=== PATIENT | female | born 1970 | race Caucasian/White ===

== ENCOUNTER 2017-07-29 03:26 | Observation (INO) | payer OTHER ==
[2017-07-29] MEDS ORDERED: Sodium Chloride 0.9% 1,000 ML IV ONE (03:42)
[2017-07-29] MEDS ORDERED: Belladonna-Phenobarbital PO STA (03:42)
[2017-07-29] MEDS ORDERED: Sodium Chloride 0.9% 1,000 ML ONE (03:57)
[2017-07-29] MEDS ORDERED: Belladonna-Phenobarbital ONE (03:57)
--- NOTE | 2017-07-29 04:01 | C.PDOC ---
History Of Present Illness <Jaz Decker - Last Filed: 07/29/17 06:30> <Calixto Glynn N - Last Filed: 07/29/17 07:29> 47 y/o female with c/o of epigastric pain, vomiting x 2 and loose stools after returning from work this morning. Pt reported eating spaghetti from a can which could have caused these symptoms. 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 denies: Fever, Back Pain, Chest Pain <Jaz Decker - Last Filed: 07/29/17 06:30> <Calixto Glynn N - Last Filed: 07/29/17 07:29> Time Seen by Provider: 07/29/17 03:35 Chief Complaint (Nursing): Abdominal Pain Past Medical History - Medical History PMH: GERD Denies: Chronic Kidney Disease Surgical History: No Surg Hx Family History: States: Unknown Family Hx - Social History Hx Alcohol Use: No Hx Substance Use: No <Jaz Decker - Last Filed: 07/29/17 06:30> Vital Signs: Last Vital Signs Temp 98 F 07/29/17 06:47 Pulse 64 07/29/17 06:47 Resp 18 07/29/17 06:47 BP 112/68 07/29/17 06:47 Pulse Ox 99 07/29/17 06:47 Review Of Systems Constitutional: Negative for: Fever Cardiovascular: Negative for: Chest Pain, Light Headedness Respiratory: Negative for: Cough, Shortness of Breath Gastrointestinal: Positive for: Nausea, Vomiting, Abdominal Pain (epigastric). Negative for: Constipation Genitourinary: Negative for: Dysuria, Frequency, Hematuria Neurological: Negative for: Weakness, Numbness <Jaz Decker - Last Filed: 07/29/17 06:30> Constitutional: Negative for: Weakness Eyes: Negative for: Pain, Vision Change ENT: Negative for: Ear Pain, Ear Discharge Cardiovascular: Negative for: Palpitations Gastrointestinal: Negative for: Melena Musculoskeletal: Negative for: Neck Pain, Shoulder Pain Skin: Negative for: Rash Neurological: Negative for: Confusion Psych: Negative for: Anxiety, Psychosis <Calixto Glnyn N - Last Filed: 07/29/17 07:29> Physical Exam - Physical Exam Appears: Well, No Acute Distress Eye(s): bilateral: Normal Inspection, PERRL Oral Mucosa: Moist Neck: Normal Respiratory: Normal Breath Sounds Gastrointestinal/Abdominal: Bowel Sounds (normal), Soft, Tenderness ( epigasrtric and LUQ, no RUQ or RLQ tenderness), No Mass, No Distention, No Guarding, No Rebound Back: Normal Inspection, No CVA Tenderness Neurological/Psych: Oriented x3, Normal Cognition Gait: Steady <Jaz Decker - Last Filed: 07/29/17 06:30> ED Course And Treatment - Laboratory Results Result Diagrams: 07/29/17 04:10 07/29/17 04:10 O2 Sat by Pulse Oximetry: 98 Pulse Ox Interpretation: Normal Progress Note: Labs incl UA, hcg, IVF hydration, pepcid and reglan IV and PO. Pt continued with pain, morphine IV ordered. 45 mns later pt still with epigastric pain - abd and pelvic CT with contrst ordered <Jaz Decker - Last Filed: 07/29/17 06:30> - Laboratory Results Result Diagrams: 07/29/17 04:10 07/29/17 04:10 <Calixto Glynn N - Last Filed: 07/29/17 07:29> Medical Decision Making <Jaz Decker - Last Filed: 07/29/17 06:30> <Calixto Glynn N - Last Filed: 07/29/17 07:29> Medical Decision Making: pt with abdominal pian. persistent. diffuse.labs reviewed. ct a/p ordered. (Calixto Glynn) Disposition Counseled Patient/Family Regarding: Diagnosis, Need For Followup - Disposition Disposition Time: 06:33 <Jaz Decker - Last Filed: 07/29/17 06:30> <Calixto Glynn N - Last Filed: 07/29/17 07:29> - Disposition Condition: STABLE Forms: [facility] (French) - Clinical Impression Clinical Impression: Vomiting, Abdominal pain Physician Patient Turnover Patient Signed Over To: Eveline Mcknight Handoff Comments: Pending CT and disposition <Jaz Decker - Last Filed: 07/29/17 06:30>
[2017-07-29 04:14] LABS: BASO # 0.1 K/uL (0.0-0.2); BASO % 0.5 % (0.0-2.0); EOS # 0.1 K/uL (0.0-0.7); EOS % 0.5 % (0.0-4.0); HEMOGLOBIN 12.9 g/dL (11.0-16.0); LYMPH # 1.7 K/uL (1.0-4.3); LYMPH % 12.3 % (20.0-40.0); MEAN CELL VOLUME 78.4 fL (81.0-99.0); MEAN CORPUSCULAR HEMOGLOBIN 26.1 pg (27.0-31.0); MEAN CORPUSCULAR HGB CONC 33.4 g/dL (33.0-37.0); MEAN PLATELET VOLUME 8.9 fL (7.2-11.7); MONO # 0.7 K/uL (0.0-0.8); NEUT # 11.5 K/uL (1.8-7.0); NEUT % 81.7 % (50.0-75.0); RBC 4.92 Mil/uL (3.80-5.20); RED CELL DISTRIBUTION WIDTH 14.6 % (11.5-14.5)
[2017-07-29 04:25] LABS: CALCIUM 8.7 mg/dl (8.6-10.4); GFR AFRICAN-AMERICAN > 60; GFR NON-AFRICAN AMERICAN > 60; LIPASE 93 U/L (23-300)
[2017-07-29 04:26] LABS: ALB/GLOB RATIO 1.1 (1.0-2.1); ALBUMIN 4.2 g/dL (3.5-5.0); ALT/SGPT 41 U/L (9-52); AST/SGOT 44 U/L (14-36); BLOOD UREA NITROGEN 11 mg/dL (7-17)
[2017-07-29] MEDS ORDERED: Morphine 4 MG/ML VIAL ONE ×2 (05:27→09:39)
[2017-07-29 05:50] LABS: SQUAMOUS EPITHIAL 2 /hpf (0-5); URINE BILIRUBIN NEGATIVE (NEGATIVE); URINE BLOOD NEGATIVE (NEGATIVE); URINE CLARITY Clear (Clear); URINE COLOR Yellow (YELLOW); URINE GLUCOSE (UA) NORMAL (Normal); URINE LEUKOCYTE ESTERASE NEG Leu/uL (Negative); URINE PROTEIN NEGATIVE (NEGATIVE); URINE UROBILINOGEN NORMAL mg/dL (0.2-1.0)
[2017-07-29 05:53] LABS: HCG,QUALITATIVE URINE NEGATIVE (NEGATIVE)
[2017-07-29] MEDS ORDERED: Iohexol 300 100 ML IJ ONE (07:10)
[2017-07-29] MEDS ORDERED: Piperacillin/Tazobact 3.375 gm 100 ML IV STA (09:33)
[2017-07-29] MEDS ORDERED: Piperacillin/Tazobact 3.375 gm 100 ML IVPB ONE (09:40)
--- NOTE | 2017-07-29 10:22 | CT ---
PROCEDURE: CT Abdomen and Pelvis with contrast HISTORY: Abdominal pain and vomiting COMPARISON: None. TECHNIQUE: CT scan of the abdomen and pelvis was performed after administration of intravenous contrast. Oral contrast was not administered. Coronal and sagittal reformatted images were obtained. Contrast dose: 100 mL Omnipaque 300 Radiation dose: Total exam DLP = 1082.36 mGy-cm. This CT exam was performed using one or more of the following dose reduction techniques: Automated exposure control, adjustment of the mA and/or kV according to patient size, and/or use of iterative reconstruction technique. FINDINGS: LOWER THORAX: There is linear atelectasis/ scarring in the lung bases. LIVER: Normal in size with homogeneous enhancement. No gross lesion or ductal dilatation. GALLBLADDER AND BILE DUCTS: No calcified gallstones. PANCREAS: Normal in size with homogeneous enhancement. No gross lesion or ductal dilatation. SPLEEN: Normal in size and appearance. ADRENALS: No discrete nodule. KIDNEYS AND URETERS: Both kidneys are normal in size and there is homogeneous enhancement without hydronephrosis or solid mass. VASCULATURE: No aortic aneurysm. BOWEL: The small bowel loops are normal in caliber. The colon is decompressed. There is scattered colonic diverticulosis without CT evidence for acute diverticulitis. APPENDIX: The appendix is fluid-filled, distended and measures 12 mm with mild wall enhancement and inflammatory changes in the surrounding mesenteric fat. No evidence of perforation or abscess. PERITONEUM: No free fluid. No free air. LYMPH NODES: No enlarged lymph nodes. BLADDER: Unremarkable. REPRODUCTIVE: The uterus is normal in size. BONES: No acute fracture. Within normal limits for the patient's age. OTHER FINDINGS: None. IMPRESSION: Findings are most compatible with acute appendicitis. No evidence for perforation or abscess. Important findings were discussed with AUGUSTO Almendarez in the ER on 07/29/2017 at 9:30 a.m.
[2017-07-29] MEDS ORDERED: Piperacillin/Tazobact 3.375 GM in Sodium Chloride 100 ML IVPB SCH (10:45)
[2017-07-29] MEDS ORDERED: Sodium Chloride 0.9% 1,000 ML IV SCH (10:45)
--- NOTE | 2017-07-29 10:49 | CP.PCM.CON ---
<Sudhakar Walter - Last Filed: 07/29/17 16:16> History of Present Illness - History of Present Illness History of Present Illness: Surgery Consult note. Dr. Pritchard 47yo F with no significant PMHx here for evaluation of Abdominal pain. Pain started this morning at 12:15AM, located in the RLQ, associated with nausea and vomiting x3 episodes (non-bilious, non-bloody), no diarrhea. No association with food intake. Last food intake was 5PM yesterday. Walking and movement exacerbates the abdominal pain. No fevers or chills. No urinary complaints. No sick contacts. No headaches. PMHx: Denies PSHx: Denies Social Hx: Denies Tobacco, denies drugs, occasional ETOH use. Lives at home with family Family Hx: non-contributory NKDA Review of Systems - Review of Systems All systems: reviewed and no additional remarkable complaints except - Constitutional Constitutional: absent: Chills, Fever - Cardiovascular Cardiovascular: absent: Chest Pain, Dyspnea - Respiratory Respiratory: absent: Cough, Dyspnea - Gastrointestinal Gastrointestinal: Abdominal Pain, Nausea, Vomiting. absent: Diarrhea - Genitourinary Genitourinary: absent: Difficulty Urinating, Dysuria Past Patient History - Past Medical History & Family History Past Medical History?: Yes - Past Social History Smoking Status: Never Smoked - CARDIAC Hx Cardiac Disorders: No - PULMONARY Hx Respiratory Disorders: No - NEUROLOGICAL Hx Neurological Disorder: No - HEENT Hx HEENT Problems: No - RENAL Hx Chronic Kidney Disease: No - ENDOCRINE/METABOLIC Hx Endocrine Disorders: No - HEMATOLOGICAL/ONCOLOGICAL Hx Blood Disorders: No - INTEGUMENTARY Hx Dermatological Problems: No - MUSCULOSKELETAL/RHEUMATOLOGICAL Hx Musculoskeletal Disorders: No - GASTROINTESTINAL Hx Gastrointestinal Disorders: No - GENITOURINARY/GYNECOLOGICAL Hx Genitourinary Disorders: No - PSYCHIATRIC Hx Substance Use: No - SURGICAL HISTORY Hx Surgeries: No Meds Allergies/Adverse Reactions: Allergies Allergy/AdvReac Type Severity Reaction Status Date / Time No Known Allergies Allergy Verified 07/29/17 03:40 - Medications Medications: Current Medications Acetaminophen (Tylenol 325mg Tab) 650 mg PO Q6 PRN PRN Reason: Fever >100.4 F Sodium Chloride (Sodium Chloride 0.9%) 1,000 mls @ 125 mls/hr IV .Q8H ROXY Piperacillin Sod/Tazobactam (Sod 3.375 gm/ Sodium Chloride) 100 mls @ 200 mls/ hr IVPB Q6H ROXY PRN Reason: Protocol Metronidazole (Flagyl) 500 mg in 100 mls @ 100 mls/hr IVPB Q8 ROXY PRN Reason: Protocol Ondansetron HCl (Zofran Inj) 4 mg IVP Q6H PRN PRN Reason: Nausea/Vomiting Physical Exam - Constitutional Appears: Well, Non-toxic, No Acute Distress - Head Exam Head Exam: ATRAUMATIC, NORMAL INSPECTION, NORMOCEPHALIC - Eye Exam Eye Exam: EOMI, Normal appearance - ENT Exam ENT Exam: Mucous Membranes Moist - Respiratory Exam Respiratory Exam: Clear to Auscultation Bilateral, NORMAL BREATHING PATTERN. absent: Accessory Muscle Use, Respiratory Distress - Cardiovascular Exam Cardiovascular Exam: RRR. absent: JVD - GI/Abdominal Exam GI & Abdominal Exam: Rebound, Soft, Tenderness (Right lower quadrant tenderness) . absent: Distended, Firm, Guarding, Rigid - Extremities Exam Extremities exam: Positive for: normal inspection. Negative for: calf tenderness - Back Exam Back exam: NORMAL INSPECTION - Neurological Exam Neurological exam: Alert, Oriented x3 - Psychiatric Exam Psychiatric exam: Normal Affect, Normal Mood - Skin Skin Exam: Dry, Intact, Normal Color, Warm Results - Vital Signs Recent Vital Signs: Last Vital Signs Temp 97.9 F 07/29/17 07:36 Pulse 88 07/29/17 10:04 Resp 17 07/29/17 10:04 BP 122/70 07/29/17 10:04 Pulse Ox 99 07/29/17 10:04 - Labs Result Diagrams: 07/29/17 04:10 07/29/17 04:10 Labs: Laboratory Results - last 24 hr 07/29/17 07/29/17 07/29/17 04:10 04:10 05:43 WBC 14.0 H D RBC 4.92 Hgb 12.9 Hct 38.6 MCV 78.4 L MCH 26.1 L MCHC 33.4 RDW 14.6 H Plt Count 229 MPV 8.9 Neut % (Auto) 81.7 H Lymph % (Auto) 12.3 L [place] % (Auto) 5.0 Eos % (Auto) 0.5 Baso % (Auto) 0.5 Neut # (Auto) 11.5 H Lymph # (Auto) 1.7 [place] # (Auto) 0.7 Eos # (Auto) 0.1 Baso # (Auto) 0.1 Sodium 140 Potassium 4.1 Chloride 103 Carbon Dioxide 24 Anion Gap 16 BUN 11 Creatinine 0.6 L Est GFR ( Amer) > 60 Est GFR (Non-Af Amer) > 60 Random Glucose 122 H Calcium 8.7 Total Bilirubin 0.7 AST 44 H ALT 41 Alkaline Phosphatase 62 Total Protein 8.0 Albumin 4.2 Globulin 3.8 Albumin/Globulin Ratio 1.1 Lipase 93 Urine Color Yellow Urine Clarity Clear Urine pH 7.0 Ur Specific [place] 1.016 Urine Protein Negative Urine Glucose (UA) Normal Urine Ketones Trace Urine Blood Negative Urine Nitrate Negative Urine Bilirubin Negative Urine Urobilinogen Normal Ur Leukocyte Esterase Neg Urine WBC (Auto) < 1 Urine RBC (Auto) 1 Ur Squamous Epith Cells 2 Urine HCG, Qual Negative Assessment & Plan - Assessment and Plan (Free Text) Assessment: 47yo F with acute appendicitis Plan: - To OR today - NPO - IVF - IV abx - Pain management Further recs as per Dr. Macho Walter PGY1 surgery pager: [phone] <Kleber Pritchard - Last Filed: 07/30/17 21:21> Results - Vital Signs Recent Vital Signs: Last Vital Signs Temp 98.8 F 07/30/17 08:20 Pulse 76 07/30/17 08:20 Resp 18 07/30/17 08:20 BP 117/77 07/30/17 08:20 Pulse Ox 99 07/30/17 08:20 - Labs Result Diagrams: 07/30/17 06:16 07/30/17 06:16 Labs: Laboratory Results - last 24 hr 07/30/17 07/30/17 06:16 06:16 WBC 6.7 D RBC 4.40 Hgb 11.6 Hct 34.3 MCV 77.9 L MCH 26.2 L MCHC 33.7 RDW 14.9 H Plt Count 178 MPV 9.2 Neut % (Auto) 70.3 Lymph % (Auto) 21.1 [place] % (Auto) 8.0 Eos % (Auto) 0.2 Baso % (Auto) 0.4 Neut # (Auto) 4.7 Lymph # (Auto) 1.4 [place] # (Auto) 0.5 Eos # (Auto) 0.0 Baso # (Auto) 0.0 Sodium 139 Potassium 3.0 L Chloride 104 Carbon Dioxide 24 Anion Gap 14 BUN 6 L Creatinine 0.7 Est GFR ( Amer) > 60 Est GFR (Non-Af Amer) > 60 Random Glucose 110 H Calcium 8.0 L Phosphorus 2.8 Magnesium 1.9 Total Bilirubin 0.5 AST 21 ALT 32 Alkaline Phosphatase 50 Total Protein 6.0 L Albumin 3.0 L D Globulin 3.0 Albumin/Globulin Ratio 1.0 Attending/Attestation - Attestation I have personally seen and examined this patient.: Yes I have fully participated in the care of the patient.: Yes I have reviewed all pertinent clinical information: Yes Notes (Text): Pt was seen and examine at bedside Agree with above note and assessment Pt with RLQ pain and tenderness Labs and radiology reviewed Ass: Acute Appendicitis Plan: Lap Appendectomy possible Open Consent NPO, IVF IV antibiotics Plan d.w pt in detail Risk and benefit explained in detail.
--- NOTE | 2017-07-29 11:24 | RAD ---
HISTORY: pre op COMPARISON: 04/16/2015. FINDINGS: LUNGS: The lungs are clear. PLEURA: No significant pleural effusion identified, no pneumothorax apparent. CARDIOVASCULAR: Normal. OSSEOUS STRUCTURES: No significant abnormalities. VISUALIZED UPPER ABDOMEN: Normal. OTHER FINDINGS: None. IMPRESSION: No active pulmonary disease.
[2017-07-29 11:47] LABS: INR 1.1; PROTHROMBIN TIME 12.4 SECONDS (9.7-12.2)
--- NOTE | 2017-07-29 12:02 | CP.PCM.HP ---
<Nirav Guzman - Last Filed: 07/29/17 12:03> History of Present Illness - History of Present Illness History of Present Illness: PGY-1 H&P for Dr. Aragon CC: abdominal pain This is a 47 year old female with no significant PMHx who presents complaining of severe abdominal pain. Patient states that this started yesterday when she was coming home from work. Patient states that it is diffuse in location and described as a cramping and twisting sensation 10/10 without radiation to the back. Movement exacerbates it, and the IV morphine received in the ED has alleviated her pain greatly. Patient admits associated nausea/vomiting clear in color. There were 3 bouts of vomiting at home yesterday and 5 bouts today. Patient denies any other complaints at this time. PMHx: denies PSHx: denies Allergies: NKDA Social: Denies tobacco, drugs. Occasional alcohol use. 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 Family Hx: Mother with stroke and pancreatic CA. Father with liver disease and bone CA. PMD: Does not have a PMD at the moment since she recently acquired insurance Home meds: Ranitidine 150 mg PO daily Present on Admission - Present on Admission Any Indicators Present on Admission: No Review of Systems - Constitutional Constitutional: absent: Chills, Fever - EENT Eyes: absent: Change in Vision Ears: absent: Decreased Hearing Nose/Mouth/Throat: absent: Nasal Congestion - Cardiovascular Cardiovascular: absent: Chest Pain - Respiratory Respiratory: absent: Dyspnea - Gastrointestinal Gastrointestinal: Abdominal Pain (diffuse), Nausea, Vomiting. absent: Constipation, Diarrhea - Genitourinary Genitourinary: absent: Dysuria - Musculoskeletal Musculoskeletal: absent: Back Pain - Integumentary Integumentary: absent: Rash - Neurological Neurological: Dizziness (occasional when vomiting). absent: Weakness - Psychiatric Psychiatric: absent: Anxiety - Endocrine Endocrine: absent: Palpitations Past Patient History - Past Medical History & Family History Past Medical History?: Yes - Past Social History Smoking Status: Never Smoked - CARDIAC Hx Cardiac Disorders: No - PULMONARY Hx Respiratory Disorders: No - NEUROLOGICAL Hx Neurological Disorder: No - HEENT Hx HEENT Problems: No - RENAL Hx Chronic Kidney Disease: No - ENDOCRINE/METABOLIC Hx Endocrine Disorders: No - HEMATOLOGICAL/ONCOLOGICAL Hx Blood Disorders: No - INTEGUMENTARY Hx Dermatological Problems: No - MUSCULOSKELETAL/RHEUMATOLOGICAL Hx Musculoskeletal Disorders: No - GASTROINTESTINAL Hx Gastrointestinal Disorders: No - GENITOURINARY/GYNECOLOGICAL Hx Genitourinary Disorders: No - PSYCHIATRIC Hx Substance Use: No - SURGICAL HISTORY Hx Surgeries: No Meds Allergies/Adverse Reactions: Allergies Allergy/AdvReac Type Severity Reaction Status Date / Time No Known Allergies Allergy Verified 07/29/17 03:40 Physical Exam - Constitutional Appears: No Acute Distress - Head Exam Head Exam: ATRAUMATIC, NORMOCEPHALIC - Eye Exam Eye Exam: EOMI, PERRL - ENT Exam ENT Exam: Mucous Membranes Moist - Respiratory Exam Respiratory Exam: Clear to Auscultation Bilateral, NORMAL BREATHING PATTERN. absent: Rales, Rhonchi, Wheezes - Cardiovascular Exam Cardiovascular Exam: REGULAR RHYTHM, +S1, +S2 - GI/Abdominal Exam GI & Abdominal Exam: Normal Bowel Sounds, Soft, Tenderness (mild diffuse tenderness markedly reduced as she was seen after morphine administration. positive Rovsing's sign). absent: Distended - Extremities Exam Extremities exam: Positive for: normal capillary refill, pedal pulses present. Negative for: pedal edema, tenderness - Neurological Exam Neurological exam: Alert, CN II-XII Intact, Oriented x3 - Psychiatric Exam Psychiatric exam: Normal Affect, Normal Mood - Skin Skin Exam: Dry, Warm Results - Vital Signs Recent Vital Signs: Last Vital Signs Temp 98.2 F 07/29/17 11:55 Pulse 78 07/29/17 11:55 Resp 18 07/29/17 11:55 BP 121/75 07/29/17 11:55 Pulse Ox 96 07/29/17 11:55 - Labs Result Diagrams: 07/29/17 04:10 07/29/17 04:10 Labs: Laboratory Results - last 24 hr 07/29/17 07/29/17 07/29/17 04:10 04:10 05:43 WBC 14.0 H D RBC 4.92 Hgb 12.9 Hct 38.6 MCV 78.4 L MCH 26.1 L MCHC 33.4 RDW 14.6 H Plt Count 229 MPV 8.9 Neut % (Auto) 81.7 H Lymph % (Auto) 12.3 L [place] % (Auto) 5.0 Eos % (Auto) 0.5 Baso % (Auto) 0.5 Neut # (Auto) 11.5 H Lymph # (Auto) 1.7 [place] # (Auto) 0.7 Eos # (Auto) 0.1 Baso # (Auto) 0.1 PT INR APTT Sodium 140 Potassium 4.1 Chloride 103 Carbon Dioxide 24 Anion Gap 16 BUN 11 Creatinine 0.6 L Est GFR ( Amer) > 60 Est GFR (Non-Af Amer) > 60 Random Glucose 122 H Calcium 8.7 Total Bilirubin 0.7 AST 44 H ALT 41 Alkaline Phosphatase 62 Total Protein 8.0 Albumin 4.2 Globulin 3.8 Albumin/Globulin Ratio 1.1 Lipase 93 Urine Color Yellow Urine Clarity Clear Urine pH 7.0 Ur Specific [place] 1.016 Urine Protein Negative Urine Glucose (UA) Normal Urine Ketones Trace Urine Blood Negative Urine Nitrate Negative Urine Bilirubin Negative Urine Urobilinogen Normal Ur Leukocyte Esterase Neg Urine WBC (Auto) < 1 Urine RBC (Auto) 1 Ur Squamous Epith Cells 2 Urine HCG, Qual Negative 07/29/17 11:20 WBC RBC Hgb Hct MCV MCH MCHC RDW Plt Count MPV Neut % (Auto) Lymph % (Auto) [place] % (Auto) Eos % (Auto) Baso % (Auto) Neut # (Auto) Lymph # (Auto) [place] # (Auto) Eos # (Auto) Baso # (Auto) PT 12.4 H INR 1.1 APTT 27 Sodium Potassium Chloride Carbon Dioxide Anion Gap BUN Creatinine Est GFR ( Amer) Est GFR (Non-Af Amer) Random Glucose Calcium Total Bilirubin AST ALT Alkaline Phosphatase Total Protein Albumin Globulin Albumin/Globulin Ratio Lipase Urine Color Urine Clarity Urine pH Ur Specific [place] Urine Protein Urine Glucose (UA) Urine Ketones Urine Blood Urine Nitrate Urine Bilirubin Urine Urobilinogen Ur Leukocyte Esterase Urine WBC (Auto) Urine RBC (Auto) Ur Squamous Epith Cells Urine HCG, Qual Assessment & Plan - Assessment and Plan (Free Text) Plan: Acute Appendicitis As evidenced by CT imaging Zosyn 3.375 gm Q6 Flagyl 500 mg Q8 Surgery consult, Dr. Pritchard, help appreciated Surgery planned for 13:00 today Morphine 2 mg Q3 IV prn NS 125cc/hr follow up surgery recommendations Pre-op CXR no active disease Pre-op EKG NSR with no ST segment changes Prophylaxis Will follow up surgery recommendations for when to start post-op Pepcid 20 mg IV daily Disposition: Patient is medically optimized for surgery today. Discussed with Dr. Margo Guzman PGY-1 <Daniel Aragon H - Last Filed: 07/29/17 12:24> Results - Vital Signs Recent Vital Signs: Last Vital Signs Temp 98.2 F 07/29/17 11:55 Pulse 78 07/29/17 11:55 Resp 18 07/29/17 11:55 BP 121/75 07/29/17 11:55 Pulse Ox 96 07/29/17 11:55 - Labs Result Diagrams: 07/29/17 04:10 07/29/17 04:10 Labs: Laboratory Results - last 24 hr 07/29/17 07/29/17 07/29/17 04:10 04:10 05:43 WBC 14.0 H D RBC 4.92 Hgb 12.9 Hct 38.6 MCV 78.4 L MCH 26.1 L MCHC 33.4 RDW 14.6 H Plt Count 229 MPV 8.9 Neut % (Auto) 81.7 H Lymph % (Auto) 12.3 L [place] % (Auto) 5.0 Eos % (Auto) 0.5 Baso % (Auto) 0.5 Neut # (Auto) 11.5 H Lymph # (Auto) 1.7 [place] # (Auto) 0.7 Eos # (Auto) 0.1 Baso # (Auto) 0.1 PT INR APTT Sodium 140 Potassium 4.1 Chloride 103 Carbon Dioxide 24 Anion Gap 16 BUN 11 Creatinine 0.6 L Est GFR ( Amer) > 60 Est GFR (Non-Af Amer) > 60 Random Glucose 122 H Calcium 8.7 Total Bilirubin 0.7 AST 44 H ALT 41 Alkaline Phosphatase 62 Total Protein 8.0 Albumin 4.2 Globulin 3.8 Albumin/Globulin Ratio 1.1 Lipase 93 Urine Color Yellow Urine Clarity Clear Urine pH 7.0 Ur Specific [place] 1.016 Urine Protein Negative Urine Glucose (UA) Normal Urine Ketones Trace Urine Blood Negative Urine Nitrate Negative Urine Bilirubin Negative Urine Urobilinogen Normal Ur Leukocyte Esterase Neg Urine WBC (Auto) < 1 Urine RBC (Auto) 1 Ur Squamous Epith Cells 2 Urine HCG, Qual Negative 07/29/17 11:20 WBC RBC Hgb Hct MCV MCH MCHC RDW Plt Count MPV Neut % (Auto) Lymph % (Auto) [place] % (Auto) Eos % (Auto) Baso % (Auto) Neut # (Auto) Lymph # (Auto) [place] # (Auto) Eos # (Auto) Baso # (Auto) PT 12.4 H INR 1.1 APTT 27 Sodium Potassium Chloride Carbon Dioxide Anion Gap BUN Creatinine Est GFR ( Amer) Est GFR (Non-Af Amer) Random Glucose Calcium Total Bilirubin AST ALT Alkaline Phosphatase Total Protein Albumin Globulin Albumin/Globulin Ratio Lipase Urine Color Urine Clarity Urine pH Ur Specific [place] Urine Protein Urine Glucose (UA) Urine Ketones Urine Blood Urine Nitrate Urine Bilirubin Urine Urobilinogen Ur Leukocyte Esterase Urine WBC (Auto) Urine RBC (Auto) Ur Squamous Epith Cells Urine HCG, Qual Attending/Attestation - Attestation I have personally seen and examined this patient.: Yes I have fully participated in the care of the patient.: Yes I have reviewed all pertinent clinical information: Yes Notes (Text): 07/29/17 12:21 Medical attending: Patient was seen and examined by me with the biomedical engineering director in ER bed 13. Family member present as well in the room, patient was ok with this. Agree with the above note by the resident By the time I saw her she had recived morphine IV and said this had helped her with the abdominal pain signifigantly. Reviewed the CT, concern for appendicitis. She has a WBC of 14.5. No other signifigant medical history noted. She is already on IVF, IV Zosyn IV Flagyl, and NPO. She had a CXRAY and EKG, both of these were stable. I have been informed that they are planning for OR sometime today. thank you Daniel Aragon
[2017-07-29] MEDS: Lidocaine/Epinephrine 1% 1:100000 10 ML IJ ONE ×2 (13:13→13:50)
[2017-07-29] MEDS: Bupivacaine 0.25% Inj(30mL) ONE ×2 (13:13→13:50)
[2017-07-29] MEDS ORDERED: Propofol 10 mg/ml Inj (20 ML) ONE ×2 (13:20→14:24)
[2017-07-29] MEDS: metroNIDAZOLE IV 500 mg/100 ml 500 MG/100 ML BAG IVPB SCH ×2 (13:30→20:59)
[2017-07-29] MEDS ORDERED: Succinylcholine Chloride 20 mg/ml Syr (5 ml) IV ONE (13:33)
[2017-07-29] MEDS ORDERED: Rocuronium 10 mg/ml (5 ml) ONE (13:34)
[2017-07-29] MEDS: Piperacillin/Tazobact 3.375 GM in Sodium Chloride 100 ML IVPB SCH ×2 (13:45→20:59)
[2017-07-29] MEDS ORDERED: Neostigmine Methylsulfate 3mg/3ml Syringe IV ONE (14:29)
[2017-07-29] MEDS ORDERED: HYDROmorphone 0.5 mg/0.5 ml ISec IVP PRN (14:39)
[2017-07-29] MEDS ORDERED: Lactated Ringer's 1,000 ML IV SCH (14:45)
--- NOTE | 2017-07-29 14:49 | PCM.SURG1 ---
Surgeon's Initial Post Op Note - Surgeon's Notes Surgeon: Dr. Pritchard Adult Parole Officer: Saba PGY1 Type of Anesthesia: General Endo Anesthesia Administered By: Dr. Gordon Pre-Operative Diagnosis: Acute Appendicitis Operative Findings: Supparative Appendicitis. See operative report Post-Operative Diagnosis: same Operation Performed: Laparascopic Appendectomy Specimen/Specimens Removed: Appendix Estimated Blood Loss: EBL {In ML}: 10 Blood Products Given: N/A Drains Used: No Drains Post-Op Condition: Good Date of Surgery/Procedure: 07/29/17 Time of Surgery/Procedure: 14:49
[2017-07-29] MEDS: Oxycodone/Acetaminophen 5/325 mg Tab PO PRN (20:05)
--- NOTE | 2017-07-29 23:57 | OP ---
PROCEDURE DATE: 07/29/2017 PREOPERATIVE DIAGNOSES: Acute appendicitis and leukocytosis. POSTOPERATIVE DIAGNOSES: 1. Acute suppurative appendicitis. 2. Pelvic and periappendicular small abscess. PROCEDURE DONE: 1. Laparoscopic appendectomy. 2. Laparoscopic drainage of small pelvic and periappendicular abscess. SURGEON: The procedure was done by Dr. Macho lucas. GLUING PRESSMAN: Sudhakar Walter, PGY-2 resident. TYPE OF ANESTHESIA: General endotracheal tube anesthesia. ESTIMATED BLOOD LOSS: Around 10 mL. DRAIN: None. PATHOLOGY: Appendix was sent for the pathology. COMPLICATIONS: None. INTRAOPERATIVE FINDINGS: The patient had acute suppurative appendicitis with purulent small pelvic collection and periappendicular collection. DESCRIPTION OF PROCEDURE: On intraoperative steps, this 47-year-old female who was diagnosed with acute appendicitis with leukocytosis and the patient was consented for laparoscopic appendectomy, possible open, brought to the OR, placed supine on the operating table. After induction of the anesthesia, abdomen was prepped and draped in the usual sterile fashion. Supraumbilical transverse incision was made after incising skin, subcutaneous tissue and fascia. The Armando port was placed, pneumo was created. The 5-mm port was placed in the suprapubic region. A 12-mm port was placed in a left lower quadrant. The grasper and dissector was introduced and periappendicular collection was drained and the patient also had a pelvic collection that was also drained; and now the mesoappendix was resected with the harmonic scalpel. The base of the appendix was resected with the OSEAS and appendix was taken in an EndoCatch bag, taken out through the umbilical port site, and sent off the table for pathology. The suction irrigation of the periappendicular area and the pelvic area was done and all the collection of fluid was suctioned out. Hemostasis was achieved. All the port was taken out under vision. Pneumo was deflated. The umbilical port site was closed in 2 layers, fascia with 0-Vicryl interrupted sutures, skin with the 4-0 Monocryl and dry sterile dressing was applied. The patient tolerated the procedure well. Count of the instrument and gauze was correct. There was no apparent complication. Kleber Pritchard MD
[2017-07-30] MEDS: Piperacillin/Tazobact 3.375 GM in Sodium Chloride 100 ML IVPB SCH ×2 (03:53→09:49)
[2017-07-30] MEDS: metroNIDAZOLE IV 500 mg/100 ml 500 MG/100 ML BAG IVPB SCH (05:41)
[2017-07-30] MEDS: Oxycodone/Acetaminophen 5/325 mg Tab PO PRN (05:48)
[2017-07-30 06:24] LABS: BASO % 0.4 % (0.0-2.0); EOS % 0.2 % (0.0-4.0); HEMOGLOBIN 11.6 g/dL (11.0-16.0); LYMPH # 1.4 K/uL (1.0-4.3); LYMPH % 21.1 % (20.0-40.0); MEAN CELL VOLUME 77.9 fL (81.0-99.0); MEAN CORPUSCULAR HEMOGLOBIN 26.2 pg (27.0-31.0); MEAN CORPUSCULAR HGB CONC 33.7 g/dL (33.0-37.0); MEAN PLATELET VOLUME 9.2 fL (7.2-11.7); MONO # 0.5 K/uL (0.0-0.8); NEUT # 4.7 K/uL (1.8-7.0); NEUT % 70.3 % (50.0-75.0); RBC 4.4 Mil/uL (3.80-5.20); RED CELL DISTRIBUTION WIDTH 14.9 % (11.5-14.5); WHITE BLOOD COUNT 6.7 K/uL (4.8-10.8)
[2017-07-30 06:42] LABS: ALT/SGPT 32 U/L (9-52); AST/SGOT 21 U/L (14-36); BLOOD UREA NITROGEN 6 mg/dL (7-17); GFR AFRICAN-AMERICAN > 60; GFR NON-AFRICAN AMERICAN > 60
[2017-07-30] MEDS ORDERED: Potassium Chloride 20 mEq ER Tab PO STA (07:27)
--- NOTE | 2017-07-30 07:30 | CP.PCM.PN ---
<Stanley Garcia - Last Filed: 07/30/17 07:28> Subjective - Date & Time of Evaluation Date of Evaluation: 07/30/17 Time of Evaluation: 07:28 - Subjective Subjective: General Surgery: Dr Pritchard PT S&E. NAEO. POD#1 s/p lap appy. Pt reports she is feeling much better. Tolerated diet. PAssing flatus. Denies f/c, sob, cp, n/v. Post-op instructions given at bedside. Objective - Vital Signs/Intake and Output Vital Signs (last 24 hours): Temp Pulse Resp BP Pulse Ox 98.6 F 81 20 108/69 96 07/30/17 04:20 07/30/17 04:20 07/30/17 04:20 07/30/17 04:20 07/30/17 04:20 Intake and Output: 07/30/17 07/30/17 06:59 18:59 Intake Total 1720 Balance 1720 - Medications Medications: Current Medications Acetaminophen (Tylenol 325mg Tab) 650 mg PO Q6 PRN PRN Reason: Fever >100.4 F Famotidine (Pepcid) 20 mg IVP DAILY ROXY Piperacillin Sod/Tazobactam (Sod 3.375 gm/ Sodium Chloride) 100 mls @ 200 mls/ hr IVPB Q6H ROXY PRN Reason: Protocol Last Admin: 07/30/17 03:53 Dose: 200 mls/hr Metronidazole (Flagyl) 500 mg in 100 mls @ 100 mls/hr IVPB Q8 ROXY PRN Reason: Protocol Last Admin: 07/30/17 05:41 Dose: 100 mls/hr Oxycodone/Acetaminophen (Percocet 5/325 Mg Tab) 1 tab PO Q6H PRN PRN Reason: Pain, moderate (4-7) Stop: 08/01/17 15:31 Last Admin: 07/30/17 05:48 Dose: 1 tab Pneumococcal Polyvalent Vaccine (Pneumovax 23 Vaccine) 0.5 ml IM .ONCE ONE Stop: 08/01/17 10:01 - Labs Labs: 07/30/17 06:16 07/30/17 06:16 PT 12.4 SECONDS (9.7-12.2) H 07/29/17 11:20 INR 1.1 03/25/18 11:20 APTT 27 SECONDS (21-34) 07/29/17 11:20 - Constitutional Appears: Non-toxic, No Acute Distress - Head Exam Head Exam: NORMAL INSPECTION - ENT Exam ENT Exam: Mucous Membranes Moist - Respiratory Exam Respiratory Exam: absent: Accessory Muscle Use, Respiratory Distress - Cardiovascular Exam Cardiovascular Exam: REGULAR RHYTHM. absent: Tachycardia - GI/Abdominal Exam GI & Abdominal Exam: Soft, Tenderness (post-op). absent: Distended, Firm, Guarding, Rigid Additional comments: incisions c/d/i - Extremities Exam Extremities Exam: absent: Pedal Edema - Neurological Exam Neurological Exam: Alert, Awake, Oriented x3 - Psychiatric Exam Psychiatric exam: Normal Affect, Normal Mood - Skin Skin Exam: Normal Color, Warm Assessment and Plan - Assessment and Plan (Free Text) Assessment: 47F POD#1 s/p lap appy Plan: clear for d/c f/u in office in 1 week post-op instructions given at bedside d/w Dr Macho Garcia, PGY3 <Kleber Pritchard B - Last Filed: 07/30/17 21:33> Objective - Vital Signs/Intake and Output Vital Signs (last 24 hours): Temp Pulse Resp BP Pulse Ox 98.8 F 76 18 117/77 99 07/30/17 08:20 07/30/17 08:20 07/30/17 08:20 07/30/17 08:20 07/30/17 08:20 - Labs Labs: 07/30/17 06:16 07/30/17 06:16 PT 12.4 SECONDS (9.7-12.2) H 07/29/17 11:20 INR 1.1 07/29/17 11:20 APTT 27 SECONDS (21-34) 07/29/17 11:20 Attending/Attestation - Attestation I have personally seen and examined this patient.: Yes I have fully participated in the care of the patient.: Yes I have reviewed all pertinent clinical information, including history, physical exam and plan: Yes Notes (Text): Pt was seen and examine at bedside Agree with above note and assessment Pt is improving clinically DC home PO antibiotics Plan d.w pt in detail Risk and benefit explained in detail.
[2017-07-30 08:25] VITALS: PULSE 76; RESP 18; TEMP 98.8; O2SAT 99
[2017-07-30 08:27] VITALS: BP 117/77
[2017-07-30] MEDS ORDERED: Potassium Chloride 20 mEq ER Tab PO ONE (09:20)
--- NOTE | 2017-07-30 11:16 | CP.PCM.DIS ---
<Nirav Guzman S - Last Filed: 07/30/17 13:27> Provider - Provider Date of Admission: 07/29/17 10:24 Attending physician: Christine Carbajal DO Consults: General Surgery: Dr. Pritchard Time Spent in preparation of Discharge (in minutes): 35 Diagnosis - Discharge Diagnosis (1) Acute appendicitis Status: Acute Priority: High Hospital Course - Lab Results Lab Results: Most Recent Lab Values WBC 6.7 K/uL (4.8-10.8) D 07/30/17 06:16 RBC 4.40 Mil/uL (3.80-5.20) 07/30/17 06:16 Hgb 11.6 g/dL (11.0-16.0) 07/30/17 06:16 Hct 34.3 % (34.0-47.0) 07/30/17 06:16 MCV 77.9 fL (81.0-99.0) L 07/30/17 06:16 MCH 26.2 pg (27.0-31.0) L 07/30/17 06:16 MCHC 33.7 g/dL (33.0-37.0) 07/30/17 06:16 RDW 14.9 % (11.5-14.5) H 07/30/17 06:16 Plt Count 178 K/uL (130-400) 07/30/17 06:16 MPV 9.2 fL (7.2-11.7) 07/30/17 06:16 Neut % (Auto) 70.3 % (50.0-75.0) 07/30/17 06:16 Lymph % (Auto) 21.1 % (20.0-40.0) 07/30/17 06:16 [place] % (Auto) 8.0 % (0.0-10.0) 07/30/17 06:16 Eos % (Auto) 0.2 % (0.0-4.0) 07/30/17 06:16 Baso % (Auto) 0.4 % (0.0-2.0) 07/30/17 06:16 Neut # (Auto) 4.7 K/uL (1.8-7.0) 07/30/17 06:16 Lymph # (Auto) 1.4 K/uL (1.0-4.3) 07/30/17 06:16 [place] # (Auto) 0.5 K/uL (0.0-0.8) 07/30/17 06:16 Eos # (Auto) 0.0 K/uL (0.0-0.7) 07/30/17 06:16 Baso # (Auto) 0.0 K/uL (0.0-0.2) 07/30/17 06:16 PT 12.4 SECONDS (9.7-12.2) H 07/29/17 11:20 INR 1.1 07/29/17 11:20 APTT 27 SECONDS (21-34) 07/29/17 11:20 Sodium 139 mmol/L (132-148) 07/30/17 06:16 Potassium 3.0 mmol/L (3.6-5.2) L 07/30/17 06:16 Chloride 104 mmol/L (98-107) 07/30/17 06:16 Carbon Dioxide 24 mmol/L (22-30) 07/30/17 06:16 Anion Gap 14 (10-20) 07/30/17 06:16 BUN 6 mg/dL (7-17) L 07/30/17 06:16 Creatinine 0.7 mg/dL (0.7-1.2) 07/30/17 06:16 Est GFR ( Amer) > 60 07/30/17 06:16 Est GFR (Non-Af Amer) > 60 07/30/17 06:16 Random Glucose 110 mg/dL (65-105) H 07/30/17 06:16 Calcium 8.0 mg/dl (8.6-10.4) L 07/30/17 06:16 Phosphorus 2.8 mg/dL (2.5-4.5) 07/30/17 06:16 Magnesium 1.9 mg/dL (1.6-2.3) 07/30/17 06:16 Total Bilirubin 0.5 mg/dL (0.2-1.3) 07/30/17 06:16 AST 21 U/L (14-36) 07/30/17 06:16 ALT 32 U/L (9-52) 07/30/17 06:16 Alkaline Phosphatase 50 U/L (38-126) 07/30/17 06:16 Total Protein 6.0 g/dL (6.3-8.3) L 07/30/17 06:16 Albumin 3.0 g/dL (3.5-5.0) L D 07/30/17 06:16 Globulin 3.0 gm/dL (2.2-3.9) 07/30/17 06:16 Albumin/Globulin Ratio 1.0 (1.0-2.1) 07/30/17 06:16 Lipase 93 U/L (23-300) 07/29/17 04:10 Urine Color Yellow (YELLOW) 07/29/17 05:43 Urine Clarity Clear (Clear) 07/29/17 05:43 Urine pH 7.0 (5.0-8.0) 07/29/17 05:43 Ur Specific [place] 1.016 (1.003-1.030) 07/29/17 05:43 Urine Protein Negative mg/dL (NEGATIVE) 07/29/17 05:43 Urine Glucose (UA) Normal mg/dL (Normal) 07/29/17 05:43 Urine Ketones Trace mg/dL (NEGATIVE) 07/29/17 05:43 Urine Blood Negative (NEGATIVE) 07/29/17 05:43 Urine Nitrate Negative (NEGATIVE) 07/29/17 05:43 Urine Bilirubin Negative (NEGATIVE) 07/29/17 05:43 Urine Urobilinogen Normal mg/dL (0.2-1.0) 07/29/17 05:43 Ur Leukocyte Esterase Neg [place]ras/uL (Negative) 07/29/17 05:43 Urine WBC (Auto) < 1 /hpf (0-5) 07/29/17 05:43 Urine RBC (Auto) 1 /hpf (0-3) 07/29/17 05:43 Ur Squamous Epith Cells 2 /hpf (0-5) 07/29/17 05:43 Urine HCG, Qual Negative (NEGATIVE) 07/29/17 05:43 - Hospital Course Hospital Course: Initial Note: "This is a 47 year old female with no significant PMHx who presents complaining of severe abdominal pain. Patient states that this started yesterday when she was coming home from work. Patient states that it is diffuse in location and described as a cramping and twisting sensation 10/10 without radiation to the back. Movement exacerbates it, and the IV morphine received in the ED has alleviated her pain greatly. Patient admits associated nausea/vomiting clear in color. There were 3 bouts of vomiting at home yesterday and 5 bouts today. Patient denies any other complaints at this time." Hospital Course: Patient admitted for acute appendicitis due to CT evidence of inflammation and edema of the appendix. Patient underwent successful laparoscopic appendectomy on 07/29/17. Patient is stable, tolerating regular food, and passing flatus. She was cleared for discharge from the surgical perspective with instructions for office follow up in one week's time. Instructions were discussed with the patient by the surgical team at bedside. Patient does not have a PMD currently. She recently acquired insurance and is looking for one. In case she was unable to find one, the information for the [facility] at [place] was provided in her discharge paperwork. This is a summary of the hospital course. For more information, refer to the medical records. Discharge Exam - Head Exam Head Exam: NORMAL INSPECTION - Additional Findings Additional findings: - Constitutional Appears: No Acute Distress - Head Exam Head Exam: ATRAUMATIC, NORMOCEPHALIC - Eye Exam Eye Exam: EOMI, PERRL - ENT Exam ENT Exam: Mucous Membranes Moist - Respiratory Exam Respiratory Exam: Clear to Auscultation Bilateral, NORMAL BREATHING PATTERN. absent: Rales, Rhonchi, Wheezes - Cardiovascular Exam Cardiovascular Exam: REGULAR RHYTHM, +S1, +S2 - GI/Abdominal Exam GI & Abdominal Exam: Normal Bowel Sounds, Soft, Tenderness (Post-operative tenderness). absent: Distended Additional Comments: Dressing clean, dry, intact - Extremities Exam Extremities exam: Positive for: normal capillary refill, pedal pulses present. Negative for: pedal edema, tenderness - Neurological Exam Neurological exam: Alert, CN II-XII Intact, Oriented x3 - Psychiatric Exam Psychiatric exam: Normal Affect, Normal Mood - Skin Skin Exam: Dry, Warm Discharge Plan - Follow Up Plan Condition: STABLE Disposition: HOME/ ROUTINE Instructions: Appendicitis, Adult (DC), Appendectomy, Laparoscopic Surgery (DC) , Managing Pain After Surgery Additional Instructions: Please continue using the incentive spirometer. Take 10 puffs every hour. Please follow up with Dr. Pritchard in the office in 1 week. For pain, you can take over the counter Tylenol if needed. Avoid Motrin, Advil, Alieve unless the pain is severe. If you take one of those medications, please be sure to take it with food. If you cannot find a primary care physician, we have a clinic in [place] called [facility]. Their info is as follows: [phone] [place] [address]. [place] [phone] If there are any new or worsening symptoms, please go to the nearest emergency room. Referrals: Kleber Pritchard MD [Staff Provider] - <Christine Carbajal V - Last Filed: 07/30/17 21:20> Provider - Provider Date of Admission: 07/29/17 10:24 Attending physician: Christine Carbajal, DO Hospital Course - Lab Results Lab Results: Most Recent Lab Values WBC 6.7 K/uL (4.8-10.8) D 07/30/17 06:16 RBC 4.40 Mil/uL (3.80-5.20) 07/30/17 06:16 Hgb 11.6 g/dL (11.0-16.0) 07/30/17 06:16 Hct 34.3 % (34.0-47.0) 07/30/17 06:16 MCV 77.9 fL (81.0-99.0) L 07/30/17 06:16 MCH 26.2 pg (27.0-31.0) L 07/30/17 06:16 MCHC 33.7 g/dL (33.0-37.0) 07/30/17 06:16 RDW 14.9 % (11.5-14.5) H 07/30/17 06:16 Plt Count 178 K/uL (130-400) 07/30/17 06:16 MPV 9.2 fL (7.2-11.7) 07/30/17 06:16 Neut % (Auto) 70.3 % (50.0-75.0) 07/30/17 06:16 Lymph % (Auto) 21.1 % (20.0-40.0) 07/30/17 06:16 [place] % (Auto) 8.0 % (0.0-10.0) 07/30/17 06:16 Eos % (Auto) 0.2 % (0.0-4.0) 07/30/17 06:16 Baso % (Auto) 0.4 % (0.0-2.0) 07/30/17 06:16 Neut # (Auto) 4.7 K/uL (1.8-7.0) 07/30/17 06:16 Lymph # (Auto) 1.4 K/uL (1.0-4.3) 07/30/17 06:16 [place] # (Auto) 0.5 K/uL (0.0-0.8) 07/30/17 06:16 Eos # (Auto) 0.0 K/uL (0.0-0.7) 07/30/17 06:16 Baso # (Auto) 0.0 K/uL (0.0-0.2) 07/30/17 06:16 PT 12.4 SECONDS (9.7-12.2) H 07/29/17 11:20 INR 1.1 07/29/17 11:20 APTT 27 SECONDS (21-34) 07/29/17 11:20 Sodium 139 mmol/L (132-148) 07/30/17 06:16 Potassium 3.0 mmol/L (3.6-5.2) L 07/30/17 06:16 Chloride 104 mmol/L (98-107) 07/30/17 06:16 Carbon Dioxide 24 mmol/L (22-30) 07/30/17 06:16 Anion Gap 14 (10-20) 07/30/17 06:16 BUN 6 mg/dL (7-17) L 07/30/17 06:16 Creatinine 0.7 mg/dL (0.7-1.2) 07/30/17 06:16 Est GFR ( Amer) > 60 07/30/17 06:16 Est GFR (Non-Af Amer) > 60 07/30/17 06:16 Random Glucose 110 mg/dL (65-105) H 07/30/17 06:16 Calcium 8.0 mg/dl (8.6-10.4) L 07/30/17 06:16 Phosphorus 2.8 mg/dL (2.5-4.5) 07/30/17 06:16 Magnesium 1.9 mg/dL (1.6-2.3) 07/30/17 06:16 Total Bilirubin 0.5 mg/dL (0.2-1.3) 07/30/17 06:16 AST 21 U/L (14-36) 07/30/17 06:16 ALT 32 U/L (9-52) 07/30/17 06:16 Alkaline Phosphatase 50 U/L (38-126) 07/30/17 06:16 Total Protein 6.0 g/dL (6.3-8.3) L 07/30/17 06:16 Albumin 3.0 g/dL (3.5-5.0) L D 07/30/17 06:16 Globulin 3.0 gm/dL (2.2-3.9) 07/30/17 06:16 Albumin/Globulin Ratio 1.0 (1.0-2.1) 07/30/17 06:16 Lipase 93 U/L (23-300) 07/29/17 04:10 Urine Color Yellow (YELLOW) 07/29/17 05:43 Urine Clarity Clear (Clear) 07/29/17 05:43 Urine pH 7.0 (5.0-8.0) 07/29/17 05:43 Ur Specific [place] 1.016 (1.003-1.030) 07/29/17 05:43 Urine Protein Negative mg/dL (NEGATIVE) 07/29/17 05:43 Urine Glucose (UA) Normal mg/dL (Normal) 07/29/17 05:43 Urine Ketones Trace mg/dL (NEGATIVE) 07/29/17 05:43 Urine Blood Negative (NEGATIVE) 07/29/17 05:43 Urine Nitrate Negative (NEGATIVE) 07/29/17 05:43 Urine Bilirubin Negative (NEGATIVE) 07/29/17 05:43 Urine Urobilinogen Normal mg/dL (0.2-1.0) 07/29/17 05:43 Ur Leukocyte Esterase Neg [place]ras/uL (Negative) 07/29/17 05:43 Urine WBC (Auto) < 1 /hpf (0-5) 07/29/17 05:43 Urine RBC (Auto) 1 /hpf (0-3) 07/29/17 05:43 Ur Squamous Epith Cells 2 /hpf (0-5) 07/29/17 05:43 Urine HCG, Qual Negative (NEGATIVE) 07/29/17 05:43 Attending/Attestation - Attestation I have personally seen and examined this patient.: Yes I have fully participated in the care of the patient.: Yes I have reviewed all pertinent clinical information, including history, physical exam and plan: Yes Notes (Text): patient seen, examined and case discussed with medical parasitologist. Patient seen and examined. Patient denies abdominal pain, passing flatus, and diet advanced to regular per surgery. Per surgery, patient is stable for discharge. No antibiotics upon discharge. Recommended to follow-up post-operative care following discharge from hospital with surgery within one week. Patient recommended to [facility] [place] [facility] care maintenance. Phone number and address provided to patient on discharge. White count as normalized. Afebrile upon discharge.
--- NOTE | 2017-07-30 23:25 | CARD ---
APPROVED REPORT EKG Measurement Heart [id number] <Conclusion> Normal sinus rhythm Normal ECG
[2017-07-31] MEDS ORDERED: Influenza Vaccine 60 mcg/0.5 mL SYR (4YR UP) IM ONE (10:00)
[2017-08-01] MEDS ORDERED: Pneumococcal 23-Valent Vaccine IM ONE (10:00)
== END 2017-07-30 13:27 | disposition home or self-care (01) ==
LOC: C.ER 03:26 → INTOOBSV 10:24 → C.9E 10:24 → C.6T 10:50
PROVIDERS: ADMIT Hospitalist; ATTEND Hospitalist
DX: K35.3 Acute appendicitis with localized peritonitis (principal); K21.9 Gastro-esophageal reflux disease without esophagitis
CPT/HCPCS: 36415; 44970; 71045; 74177; 80053; 81001; 83690; 83735; 84100; 84703; 85025; 85610; 85730; 88304; 93005; 96361; 96365; 96366; 96367; 96375; 96376; 99285; G0378; J2270; J2405; J2543; J2704; J2710; J2765; J3010; J7030; J7050; Q9967